=== PATIENT | male | born 1980 | race Caucasian/White ===

== ENCOUNTER 2019-01-28 09:57 | Inpatient (IN) | payer SELFPAY ==
[~2019-01-28] VITALS: Ht 167.6 cm; Wt 109.8 kg
[2019-01-28 10:14] VITALS: BP 122/70
--- NOTE | 2019-01-28 10:19 | NUR ---
PATIENT AMBULATED TO BED 2
--- NOTE | 2019-01-28 10:22 | NUR ---
PT C/O LLQ ABD PAIN 10/10 FOR APPROX 4 DAYS. PT DENIES N/V/D OR FEVER. PT STATES HE WAS SEEN AT URGENT CARE AND WAS GIVEN IBUPROFEN AND TYLENOL FOR PAIN. LBM TODAY, REGULAR/SOFT.
[2019-01-28] MEDS ORDERED: NACL 0.9% 500 ML IV ONE (10:26)
[2019-01-28] MEDS ORDERED: KETOROLAC 30 MG/ML VIAL IVP ONE (10:30)
--- NOTE | 2019-01-28 10:40 | NUR ---
BLOOD ORDERS CARRIED OUT BY RN AND SENT TO LAB. 20G IV STARTED TO RIGHT AC; MEDICATION ADMINISTERED AND IVF INFUSING ORDERED BY MD.
--- NOTE | 2019-01-28 10:45 | NUR ---
PT TAKEN TO CT VIA WHEELCHAIR.
[2019-01-28 10:55] LABS: BASOPHILS % (AUTO) 0.2 % (0.0-2.0); EOSINOPHILS # (AUTO) 0.4 K/uL (0-0.4); EOSINOPHILS % (AUTO) 2.2 % (0.0-4.0); HEMATOCRIT 42.7 % (36-52); HEMOGLOBIN 14.8 g/dL (12.0-18.0); LYMPHOCYTES # (AUTO) 2.2 K/uL (2.0-11.5); LYMPHOCYTES % (AUTO) 12.6 % (20.5-51.1); MEAN CORPUSCULAR HEMOGLOBIN 33 pg (27-31); MEAN CORPUSCULAR HGB CONC 35 g/dL (33-37); MEAN CORPUSCULAR VOLUME 95.8 fL (80-94); MONOCYTES # (AUTO) 2.2 K/uL (0.8-1.0); MONOCYTES % (AUTO) 12.8 % (1.7-9.3); NEUTROPHILS # (AUTO) 12.6 K/uL (1.8-7.7); NEUTROPHILS % (AUTO) 72.2 % (42.2-75.2); PLATELET COUNT (AUTO) 231 K/uL (140-450); RED BLOOD CELL COUNT(AUTO) 4.46 MIL/uL (4.20-6.10); RED CELL DISTRIBUTION WIDTH 12.4 % (11.6-13.7); WHITE BLOOD COUNT (AUTO) 17.4 K/uL (4.8-10.8)
--- NOTE | 2019-01-28 10:59 | NUR ---
PT BACK FROM CT TO BED 2
[2019-01-28 11:03] LABS: ANION GAP 14.9 (8-16); CARBON DIOXIDE 21.3 mmol/L (21-32); CREATININE 0.9 mg/dL (0.7-1.3); POTASSIUM 3.2 mmol/L (3.5-5.1)
[2019-01-28 11:09] LABS: ALBUMIN 2.9 g/dL (3.4-5.0); TOTAL BILIRUBIN 1.1 mg/dL (0.0-1.0)
[2019-01-28] MEDS ORDERED: metroNIDAZOLE 500 MG/NS PREMIX 100 ML IV ONE (11:20)
[2019-01-28] MEDS ORDERED: LEVOFLOXACIN 500 MG/D5W PREMIX 100 ML IV ONE (11:20)
[2019-01-28] MEDS: DEXT 5% /NACL 0.9% 1,000 ML IV SCH (11:32)
[2019-01-28] MEDS ORDERED: DOCUSATE SODIUM 100 MG GELCAP PO PRN (11:35)
[2019-01-28] MEDS ORDERED: MORPHINE SULFATE 2 MG/ML SYR IVP PRN (11:35)
[2019-01-28] MEDS ORDERED: ACETAMINOPHEN 325 MG TAB PO PRN (11:35)
[2019-01-28] MEDS ORDERED: ONDANSETRON 4 MG/2 ML VIAL IM/IVP PRN (11:35)
[2019-01-28] MEDS ORDERED: HYDROcodone/APAP 5/325 MG 1 TAB TAB PO PRN (11:35)
--- NOTE | 2019-01-28 11:50 | NUR ---
blood cultures obtained by RN and sent to lab with pathology laboratory technologist.
[2019-01-28 12:26] LABS: MAGNESIUM 2.2 mg/dL (1.8-2.4)
[2019-01-28] MEDS ORDERED: IBUP-1842 PO (12:35)
[2019-01-28] MEDS ORDERED: ACET-2619 PO (12:35)
--- NOTE | 2019-01-28 12:48 | NUR ---
Patient admitted to care of Dr Tian . Admited to Telemetry room 124B. Belongings list completed. Report to PIETER Russell.
--- NOTE | 2019-01-28 12:49 | NUR ---
LEVAQUIN IV TO CONTINUE INFUSING IN TELEMETRY FLOOR AND WHEN DONE TO START WITH FIRST DOSE OF FLAGYL IV; ENDORSED TO VIRI STAPLETON.
[2019-01-28 12:56] LABS: PROTHROMBIN TIME 10.1 secs (10.8-13.4)
[2019-01-28] MEDS ORDERED: POTASSIUM CHLORIDE 10 MEQ TABER PO SCH (13:00)
--- NOTE | 2019-01-28 13:17 | NUR ---
RECEIVED PATIENT AND BED SIDE REPORT AT 1245. PT AMBULATORY. A/O X4, LUNG SOUNDS CLEAR. GAVE K DUR PILLS 40MEQ PER MD ORDER. FLAGYL CURRENTLY RUNNING WITH D5 NS AT 80CC/HR. LEVAQUIN ALREADY GIVEN IN THE ER. VS STABLE, ON RA IN NO RESP DISTRESS. MRSA SWAPPED. SKIN INTACT. PT DENIES PAIN. ABDOMEN DISTENDED, LAST BM TODAY. CALL LIGHT WITHIN REACH, WILL CONTINUE TO MONITOR.
--- NOTE | 2019-01-28 13:22 | NUR ---
ANKLE BRACELET ON RIGHT FOOT, SKIN CIRCULATION INTACT.
[2019-01-28 14:00] VITALS: BP 104/56
[2019-01-28 14:20] LABS: APPEARANCE,URINE CLOUDY (CLEAR); BARBITURATE, URINE NEG. ng/ml (NEG <=200); BENZODIAZEPINE, URINE NEG. ng/mL (NEG <=200); BILIRUBIN,URINE 1+ (NEGATIVE); BLOOD, URINE 1+ (NEGATIVE); CANNABINOID, URINE NEG. ng/mL (NEG <=50); COCAINE, URINE NEG. ng/mL (NEG <=300); COLOR,URINE ORANGE (YELLOW); LEUKOCYTE ESTERASE ,URINE NEGATIVE (NEGATIVE); NITRITE, URINE POSITIVE (NEGATIVE); OPIATE, URINE NEG. ng/mL (NEG <=2000); PHENCYCLIDINE SCREEN,URINE NEG. ng/mL (NEG <=25); UGLUCOSE NEGATIVE (NEGATIVE)
[2019-01-28 14:45] LABS: CALCIUM OXALATE CRYSTALS,UR None Seen /HPF (None Seen); RBC,URINE 0-5 /HPF (0-5); TRICHOMONAS,URINE None Seen /HPF (None Seen); TRIPLE PHOSPHATE CRYSTAL,UR None Seen /HPF (None Seen); URIC ACID CRYSTALS,URINE None Seen /HPF (None Seen); WBC,URINE 0-5 /HPF (0-5); YEAST,URINE None Seen /HPF (None Seen)
[2019-01-28 14:46] LABS: OTHER CASTS, URINE None Seen /LPF (None Seen); OTHER CRYSTALS,URINE None Seen /HPF (None Seen)
[2019-01-28 14:47] LABS: URINE AMORPHOUS URATE 4+ /HPF (None Seen)
[2019-01-28 14:49] LABS: CHOL/HDL RATIO 5.5 (1-4.5)
--- NOTE | 2019-01-28 15:15 | NUR ---
PT SLEEPING, IN NO DISTRESS, ON RA IN NO RESP DISTRESS. VS STABLE. REPORTED TO MAGNESIUM 1.1 HE SAID HE WILL PUT IN ORDERS. WILL CONTINUE TO MONITOR.
--- NOTE | 2019-01-28 15:24 | NUR ---
PT'S MAG NORMAL. TOTAL BILI 1.1. NOTIFIED DR. CARMONA.
[2019-01-28] MEDS ORDERED: KETOROLAC 15 MG/ML VIAL IM PRN (17:00)
--- NOTE | 2019-01-28 17:00 | NUR ---
VICTOR HUGO RICARDO PER MD ORDER. PT SLEEPING, ON RA IN NO DISTRESS. PT DENIES PAIN. NO FEVER NOTED. WILL CONTINUE TO MONITOR.
[2019-01-28 17:22] VITALS: BP 124/73
--- NOTE | 2019-01-28 19:24 | NUR ---
ENDORSED PT TO TEST FIXTURE DESIGNER RN. PT STABLE.
[2019-01-28 20:10] VITALS: BP 124/73
--- NOTE | 2019-01-28 20:10 | NUR ---
SEEN PT AWAKE, ALERT AND ORIENTED APPEARS COMFORTABLE. PT DENIES ANY PAIN OR DISCOMFORT. INITIAL ASSESSMENT DONE. PT HAS SOMETHING ON HIS RIGHT ANKLE WHICH APPEARS TO BE MECHANICAL RESTRAINT. VITAL SIGNS CHECKED. PT'S JGNB=130.7. EXTRA BLANKET REMOVED. WILL MEDICATE FOR FEVER. IV PUMP KEEPS BEEPING. ENCOURAGED PT TO KEEP HIS RIGHT ARM STRAIGHT. WILL PROVIDE PILLOW TO ANCHOR THE RIGHT ARM. PT SAID "OK". CALL LIGHT W/IN REACH.
[2019-01-28] MEDS: metroNIDAZOLE 500 MG/NS PREMIX 100 ML IV SCH (20:55)
--- NOTE | 2019-01-28 20:55 | NUR ---
SEEN PT AWAKE, WATCHING IN HIS CELLPHONE. PT DENIES ANY PAIN. MEDICATIONS GIVEN W/ TEACHINGS. PT ENCOURAGED NOT TO DRINK SO MUCH WATER SINCE HE CAN ONLY DRINK W/ MEDICATIONS ONLY BECAUSE HIS STOMACH NEEDS TO REST FOR NOW. PT VERBALIZED UNDERSTANDING. WILL RECHECK PT'S TEMP. PT DENIES ANY OTHER NEEDS. CALL LIGHT W/IN REACH.
--- NOTE | 2019-01-28 23:00 | NUR ---
PT CALLED COMPLAINING OF FEELING HOT IN THE ROOM. PT SWEATING A LOT. PT SAID WHEN NIGHT TIME COMES HE REALLY SWEATS A LOT. PT STATES EARLIER, HIS ROOM WAS COLD THAT WHY HE ASKED FOR BLANKET WHEN HE CAME IN. THERMOSTAT ADJUSTED. INFORMED PT TO WAIT UNTIL THE TEMP ADJUSTS. PT SAID "OK". PT DENIES ANY OTHER NEEDS. WILL CONTINUE TO MONITOR.
[2019-01-29] VITALS: BP 110/65
--- NOTE | 2019-01-29 | NUR ---
SEEN PT ASLEEP BUT AROUSABLE. VITAL SIGNS CHECKED. PT'S QDVG=202.3. WILL RECHECK AGAIN AND IF ITS STILL HIGH, WILL MEDICATE ORDERED. PT DENIES ANY DISCOMFORT. PT WENT BACK TO SLEEP.
[2019-01-29] MEDS: DEXT 5% /NACL 0.9% 1,000 ML IV SCH (01:11)
--- NOTE | 2019-01-29 01:11 | NUR ---
SEEN PT SLEEPING SOUNDLY. IVF BAG CHANGED. CALL LIGHT W/IN REACH.
[2019-01-29 04:30] VITALS: BP 118/66
--- NOTE | 2019-01-29 04:30 | NUR ---
SEEN PT ASLEEP BUT EASILY AROUSABLE. VITAL SIGNS CHECKED. PT DENIES ANY N&V, ABD DISCOMFORT. PT STATES HE AHD LOOSE BM EARLIER. INFORMED HIM THE NEXT TIME HE GOES TO PUT THE SPECIMEN HAT ON THE TOILET SO WE CAN COLLECT STOOL SAMPLE. PT VERBALIZED UNDERSTANDING. PT DENIES ANY OTHER NEEDS.
[2019-01-29] MEDS: metroNIDAZOLE 500 MG/NS PREMIX 100 ML IV SCH ×3 (04:36→21:15)
--- NOTE | 2019-01-29 06:19 | NUR ---
SEEN PT SLEEPING SOUNDLY. IVF INFUSING WELL ON PT'S RT FA IV. CALL LIGHT W/IN REACH.
--- NOTE | 2019-01-29 07:14 | NUR ---
WILL ENDORSE CARE TO DAYSHIFT NURSE.
--- NOTE | 2019-01-29 07:40 | NUR ---
RECEIVED BEDSIDE REPORT FROM WARP SPOOLER RNGORGE. PATIENT IS SLEEPING, VISIBLE SYMMETRICAL CHEST RISE, WITH NO SIGNS OF DISTRESS ON RA. BED IS IN LOW POSITION AND CALL LIGHT IS IN REACH. IV FLUID IS RUNNING AT 180ML/HR TO RIGHT AC 20 GAUGE CATHETER. WILL CONTINUE TO MONITOR.
[2019-01-29 08:00] VITALS: BP 112/63
[2019-01-29 08:34] LABS: BASOPHILS # (AUTO) 0.1 K/uL (0.00-0.22); BASOPHILS % (AUTO) 0.9 % (0.0-2.0); EOSINOPHILS # (AUTO) 0.5 K/uL (0-0.4); EOSINOPHILS % (AUTO) 3.7 % (0.0-4.0); HEMATOCRIT 40.2 % (36-52); HEMOGLOBIN 13.8 g/dL (12.0-18.0); LYMPHOCYTES # (AUTO) 2.7 K/uL (2.0-11.5); LYMPHOCYTES % (AUTO) 19.1 % (20.5-51.1); MEAN CORPUSCULAR HEMOGLOBIN 33 pg (27-31); MEAN CORPUSCULAR HGB CONC 34 g/dL (33-37); MEAN CORPUSCULAR VOLUME 95.8 fL (80-94); MONOCYTES # (AUTO) 1.8 K/uL (0.8-1.0); NEUTROPHILS # (AUTO) 8.9 K/uL (1.8-7.7); NEUTROPHILS % (AUTO) 63.3 % (42.2-75.2); PLATELET COUNT (AUTO) 269 K/uL (140-450); RED BLOOD CELL COUNT(AUTO) 4.19 MIL/uL (4.20-6.10); RED CELL DISTRIBUTION WIDTH 12.5 % (11.6-13.7); WHITE BLOOD COUNT (AUTO) 14.1 K/uL (4.8-10.8)
[2019-01-29 09:35] LABS: ANION GAP 13.9 (8-16); CARBON DIOXIDE 22.5 mmol/L (21-32); CREATININE 0.7 mg/dL (0.7-1.3); POTASSIUM 3.4 mmol/L (3.5-5.1)
[2019-01-29 09:45] LABS: MAGNESIUM 2.4 mg/dL (1.8-2.4); PHOSPHORUS 2.9 mg/dL (2.5-4.9)
--- NOTE | 2019-01-29 10:20 | NUR ---
ADMINISTERED SCHEDULED MEDICATIONS. PATIENT TOLERATED WELL. NO SIGNS OF DISTRESS ON RA. IV FLUID IS PAUSED, PATIENT WAS STARTED ON CLEAR LIQUID DIET AND IS NO LONGER NPO. CALLED DOCTOR TO SEE IF FLUID ORDER WILL BE CHANGED, WAITING FOR RETURN PHONE CALL. WILL CONTINUE TO MONITOR.
[2019-01-29 12:00] VITALS: BP 121/69
[2019-01-29] MEDS ORDERED: POTASSIUM CHLORIDE 10 MEQ TABER PO SCH (12:00)
--- NOTE | 2019-01-29 12:17 | NUR ---
ADMINISTERED SCHEDULED MEDICATIONS. PATIENT TOLERATED WELL. NO C/O PAIN OR NAUSEA. STOOL REMAINS LOOSE AND LIQUIDLY BUT NO ABDOMINAL DISCOMFORT. WILL CONTINUE TO MONITOR. CALL LIGHT IN REACH. BED LOW.
[2019-01-29] MEDS: NACL 0.9% 1,000 ML IV SCH (12:18)
--- NOTE | 2019-01-29 15:45 | NUR ---
PATIENT SLEEPING, NO SIGNS OF DISTRESS ON RA. SAFETY PRECAUTIONS IN PLACE. WILL CONTINUE TO MONITOR.
[2019-01-29 16:00] VITALS: BP 95/68
--- NOTE | 2019-01-29 17:56 | NUR ---
ADMINISTERED SCHEDULED MEDICATIONS. PATIENT TOLERATED WELL. PATIENT RESTING COMFORTABLY. NO SIGNS OF DISTRESS ON RA, BUT RESPIRATIONS ARE SHALLOW AND ABOVE AVERAGE AT 30 PER MINUTE. PATIENT STATES HE FEELS HE IS BREATHING NORMALLY. CALL LIGHT IN REACH, BED LOW. WILL CONTINUE TO MONITOR.
--- NOTE | 2019-01-29 19:30 | NUR ---
GAVE REPORT TO SULFURIC ACID PLANT SUPERVISOR NURSE. ENDORSING PATIENT IN STABLE CONDITION.
--- NOTE | 2019-01-29 19:31 | NUR ---
RECEIVED REPORT FROM AM NURSE. PT SITTING UP IN BED ON PHONE. AWAKE,ALERT AND ORIENTED X4. ABLE TO ANSWER QUESTIONS AND FOLLOW COMMANDS. VISIBLE CHEST RISE AND FALL ON ROOM AIR, NO DISTRESS NOTED. LEFT AC 20G INTACT AND INFUSING WELL. NO C/O DISCOMFORT. SAFETY MEASURES IN PLACE. CALL LIGHT WITHIN REACH.
--- NOTE | 2019-01-29 21:20 | NUR ---
MEDICATIONS ADMINISTERED. PT TOLERATED WELL. PT C/O "RASH" ON BACK OF NECK. NOTED REDNESS ON BACK OF NECK. PT ATTRIBUTES THIS FROM SWEATING. REMOVED PILLOW TO ALLOW NECK TO DRY.
[2019-01-30] VITALS: BP 104/60
--- NOTE | 2019-01-30 01:30 | NUR ---
ROUNDED ON PT. PT SNORING. VISIBLE CHEST RISE AND FALL. NO VISIBLE SIGNS OF DISTRESS. IV INFUSING WELL. WILL CONTINUE TO MONITOR.
--- NOTE | 2019-01-30 03:25 | NUR ---
ROUNDED ON PT. PT SNORING, SITTING UP IN BED. BREATHING EQUAL AND UNLABORED. CALL LIGHT WITHIN REACH.
[2019-01-30] MEDS: NACL 0.9% 1,000 ML IV SCH (04:10)
[2019-01-30] MEDS: metroNIDAZOLE 500 MG/NS PREMIX 100 ML IV SCH (04:59)
--- NOTE | 2019-01-30 04:59 | NUR ---
ANTIBIOTICS HUNG. PT AMBULATING TO BATHROOM, STEADY GAIT.
--- NOTE | 2019-01-30 05:11 | NUR ---
TORADOL GIVEN FOR 5/10 ABDOMINAL PAIN.
--- NOTE | 2019-01-30 07:09 | NUR ---
PATIENT HAS BEEN SCREENED AND CATEGORIZED MODERATE NUTRITION RISK. PATIENT WILL BE SEEN WITHIN 3-5 DAYS OF ADMISSION. 01/31/19-02/02/19 ASHUTOSH MARCELINO MS, RDN
[2019-01-30] MEDS ORDERED: METR250T2 PO (07:19)
--- NOTE | 2019-01-30 07:25 | NUR ---
Received report from pm nurse September. Pt resting in bed, awake, verbally responsive, no c/o discomfort, respirations even & nonlabored. Left AC IV intact with ongoing NS @ 60ml/hr. Call light within reach.
[2019-01-30 08:00] VITALS: BP 113/70
[2019-01-30 08:02] LABS: BASOPHILS # (AUTO) 0.1 K/uL (0.00-0.22); BASOPHILS % (AUTO) 0.8 % (0.0-2.0); EOSINOPHILS # (AUTO) 0.7 K/uL (0-0.4); EOSINOPHILS % (AUTO) 4.7 % (0.0-4.0); HEMATOCRIT 39.2 % (36-52); HEMOGLOBIN 13.6 g/dL (12.0-18.0); LYMPHOCYTES # (AUTO) 2.7 K/uL (2.0-11.5); LYMPHOCYTES % (AUTO) 19.1 % (20.5-51.1); MEAN CORPUSCULAR HEMOGLOBIN 33 pg (27-31); MEAN CORPUSCULAR HGB CONC 35 g/dL (33-37); MEAN CORPUSCULAR VOLUME 95.9 fL (80-94); MONOCYTES # (AUTO) 1.6 K/uL (0.8-1.0); MONOCYTES % (AUTO) 11.2 % (1.7-9.3); NEUTROPHILS # (AUTO) 9.1 K/uL (1.8-7.7); NEUTROPHILS % (AUTO) 64.2 % (42.2-75.2); PLATELET COUNT (AUTO) 306 K/uL (140-450); RED BLOOD CELL COUNT(AUTO) 4.09 MIL/uL (4.20-6.10); RED CELL DISTRIBUTION WIDTH 12.4 % (11.6-13.7); WHITE BLOOD COUNT (AUTO) 14.2 K/uL (4.8-10.8)
[2019-01-30 08:16] LABS: ANION GAP 12.5 (8-16); CARBON DIOXIDE 24.3 mmol/L (21-32); CREATININE 0.7 mg/dL (0.7-1.3); POTASSIUM 3.8 mmol/L (3.5-5.1)
[2019-01-30 08:17] LABS: MAGNESIUM 2.2 mg/dL (1.8-2.4); PHOSPHORUS 3.9 mg/dL (2.5-4.9)
--- NOTE | 2019-01-30 11:22 | NUR ---
Written & verbal discharge instructions provided to pt. Pt verbalized understanding of dx, med Rx, & f/u with PCP. Right AC IV discontinued, catheter intact. Per pt, his car is parked outside & he will be driving himself home. Pt aaox4, safety judgement intact, able to amb with steady gait.
--- NOTE | 2019-01-30 11:40 | NUR ---
Pt discharged at this time. Amb off unit with steady gait. Pt's private car in front parking lot. All belongings with pt upon departure. Name band was removed.
== END 2019-01-30 11:40 | disposition home or self-care (01) | DRG 872 ==
LOC: MED 09:57 → MTU 11:27
PROVIDERS: ADMIT General Practice; ATTEND General Practice
DX: A41.9 Sepsis, unspecified organism (principal); K57.32 Diverticulitis of large intestine without perforation or abscess without bleeding; E44.0 Moderate protein-calorie malnutrition; E87.1 Hypo-osmolality and hyponatremia; F17.210 Nicotine dependence, cigarettes, uncomplicated; Z60.2 Problems related to living alone; E87.6 Hypokalemia; Z68.39 Body mass index [BMI] 39.0-39.9, adult; E66.9 Obesity, unspecified
CPT/HCPCS: 36415; 71045; 80048; 80053; 80305; 81001; 82150; 83036; 83605; 83690; 83735; 84100; 85025; 85610; 85730; 87040; 87081; 96361; 96365; 96375; 99285; J0696; J1644; J1885; J1956; J2405; J3490; J7030; J7042; J7060; Q0092